=== PATIENT | male | born 1975 | race Caucasian/White ===

== ENCOUNTER 2021-12-31 16:27 | Emergency (ER) | payer OTHER ==
[~2021-12-31] VITALS: Ht 190.5 cm; Wt 99.8 kg
[~2021-12-31 16:27] MED LIST: FLOMAX0.4 MG PO; PHENERGAN25 M3 PO; PRILOSEC10 MG/Pack PO; TYLENOL325 M2 PO
[2021-12-31 16:31] VITALS: BP 127/82
== END 2021-12-31 17:29 | disposition left against medical advice (07) ==
LOC: ED 16:27
DX: S61.011A Laceration without foreign body of right thumb without damage to nail, initial encounter (principal); W45.8XXA Other foreign body or object entering through skin, initial encounter; Y93.89 Activity, other specified; Y92.89 Other specified places as the place of occurrence of the external cause; Y99.8 Other external cause status